=== PATIENT | female | born 1980 | race Caucasian/White ===

== ENCOUNTER 2017-06-23 04:15 | Emergency (ER) | payer BC ==
[2017-06-23] MEDS ORDERED: Metoclopramide HCl 10 MG/2 ML VIAL ONE (04:51)
[2017-06-23] MEDS ORDERED: Dexamethasone 10 MG/ML VIAL ONE (04:51)
[2017-06-23] MEDS ORDERED: diphenhydrAMINE 50 MG/ML VIAL ONE (04:51)
== END 2017-06-23 06:51 | disposition home or self-care (01) ==
LOC: ERS 04:15
DX: R51 Headache (principal); F17.210 Nicotine dependence, cigarettes, uncomplicated; Z79.899 Other long term (current) drug therapy
CPT/HCPCS: 81025; 96365; 96375; 99406; J1100; J1200; J2765

== ENCOUNTER 2018-10-24 10:42 | Emergency (ER) | payer BC ==
[2018-10-24] MEDS ORDERED: Aspirin Chewable 81 MG TAB ONE (10:56)
[2018-10-24] MEDS ORDERED: Mag-Al Plus 1200 MG/1200 MG/120 MG/30 ML UDCUP ONE (10:56)
[2018-10-24] MEDS ORDERED: Lidocaine Viscous Sol 2% 15 ml UD Cup ONE (10:56)
[2018-10-24] MEDS ORDERED: Nitroglycerin 2% Ointment 1 INCH/1 GM Packet ONE (11:09)
[2018-10-24] MEDS ORDERED: Famotidine/PF 20 mg/2ml Vial ONE (11:09)
[2018-10-24 11:17] LABS: #Eosinphils 0.2 thou/uL (0.0-0.7); #Lymphocytes 1.8 thou/uL (1.20-3.40); #Monocytes 0.5 thou/uL (0.11-0.59); #Neutrophils 3.2 thou/uL (1.40-6.50); %Basophils 0.6 % (0.0-1.0); %Eosinophils 3.3 % (0.0-10.0); %Lymphocytes 31.1 % (21.0-51.0); %Monocytes 8.1 % (0.0-10.0); %Neutrophils 56.9 % (42.0-75.0); Hemoglobin 13.4 g/dL (12.0-16.0); Mean Corpuscular HGB CONC 31.8 g/dL (32.0-36.0); Mean Corpuscular Hemoglobin 28.4 pg (27.0-31.0); Mean Corpuscular Volume 89.3 fL (78.0-98.0); Mean Platelet Volume 7.5 fL (7.4-10.4); Platelet Count 189 thou/uL (130-400); RBC Distribution Width 11.8 % (11.5-14.5); Red Blood Cell (RBC) Count 4.72 mill/uL (4.20-5.40); White Blood Cell (WBC) Count 5.6 thou/uL (4.8-10.8)
[2018-10-24 11:26] LABS: ALT (SGPT) 22 U/L (8-55); AST (SGOT) 14 U/L (5-34); Albumin 4.1 g/dL (3.5-5.0); Alkaline Phosphatase 72 U/L (40-150); Anion Gap 11 mmol/L (10-20); BUN (Urea Nitrogen) 10 mg/dL (7.0-18.7); Bilirubin, Total 0.2 mg/dL (0.2-1.2); Calc. Creatinine Clearance 0 mL/min (70-130); Calcium 9.4 mg/dL (7.8-10.44); Carbon Dioxide 25 mmol/L (22-29); Chloride 107 mmol/L (98-107); Estimated GFR-MDRD Greater than 90; Globulin 2.4 g/dL (2.4-3.5); Glucose 100 mg/dL (70-105); Lipase 16 U/L (8-78); Protein, Total 6.5 g/dL (6.0-8.3); Sodium 139 mmol/L (136-145)
--- NOTE | 2018-10-24 12:02 | RAD ---
1 VIEW CHEST: Date: 10/24/18 COMPARISON: 05/14/16. HISTORY: Chest pain. FINDINGS: Normal cardiac silhouette. Pulmonary vessels and hilum are normal. Costophrenic angles are clear. No masses or consolidation. No pneumothorax or osseous abnormalities. IMPRESSION: No acute cardiopulmonary process. POS: [facility]
[2018-10-24 14:54] LABS: Troponin I 0.012 ng/mL (< 0.028)
== END 2018-10-24 15:27 | disposition home or self-care (01) ==
LOC: SCSER 10:42
DX: R07.9 Chest pain, unspecified (principal); Z71.6 Tobacco abuse counseling; K21.9 Gastro-esophageal reflux disease without esophagitis; G43.909 Migraine, unspecified, not intractable, without status migrainosus; F17.210 Nicotine dependence, cigarettes, uncomplicated
CPT/HCPCS: 71045; 80053; 83690; 84484; 85025; 93005; 96361; 96374; S0028

== ENCOUNTER 2019-01-02 03:57 | Emergency (ER) | payer BC ==
[2019-01-02] MEDS ORDERED: Morphine 4 MG/ML VIAL ONE (04:25)
[2019-01-02] MEDS ORDERED: Ondansetron PF 4 MG/2 ML Vial ONE (04:25)
[2019-01-02 04:37] LABS: #Eosinphils 0.2 thou/uL (0.0-0.7); #Monocytes 0.5 thou/uL (0.11-0.59); #Neutrophils 3.5 thou/uL (1.40-6.50); %Basophils 0.5 % (0.0-1.0); %Eosinophils 3.5 % (0.0-10.0); %Monocytes 7.3 % (0.0-10.0); %Neutrophils 56.8 % (42.0-75.0); Hemoglobin 13.5 g/dL (12.0-16.0); Mean Corpuscular HGB CONC 33.1 g/dL (32.0-36.0); Mean Corpuscular Hemoglobin 30.2 pg (27.0-31.0); Mean Corpuscular Volume 91.1 fL (78.0-98.0); Mean Platelet Volume 6.9 fL (7.4-10.4); Platelet Count 222 thou/uL (130-400); RBC Distribution Width 11.6 % (11.5-14.5); Red Blood Cell (RBC) Count 4.48 mill/uL (4.20-5.40); White Blood Cell (WBC) Count 6.2 thou/uL (4.8-10.8)
[2019-01-02 04:39] LABS: BHCG - Serum Negative (NEGATIVE); Pregs Control Background? CLEAR/WHITE (CLR/WHITE); Pregs Control Bar Appear? YES (CONTROL BAR)
[2019-01-02 04:54] LABS: ALT (SGPT) 26 U/L (8-55); AST (SGOT) 20 U/L (5-34); Albumin 4.3 g/dL (3.5-5.0); Alkaline Phosphatase 70 U/L (40-150); Anion Gap 10 mmol/L (10-20); BUN (Urea Nitrogen) 13 mg/dL (7.0-18.7); Bilirubin, Total 0.6 mg/dL (0.2-1.2); Calc. Creatinine Clearance 0 mL/min (70-130); Calcium 9.3 mg/dL (7.8-10.44); Carbon Dioxide 24 mmol/L (22-29); Chloride 107 mmol/L (98-107); Estimated GFR-MDRD 76; Globulin 2.4 g/dL (2.4-3.5); Glucose 115 mg/dL (70-105); Potassium 3.3 mmol/L (3.5-5.1); Protein, Total 6.7 g/dL (6.0-8.3); Sodium 138 mmol/L (136-145)
[2019-01-02 04:55] LABS: Bilirubin Negative (Negative); Blood, Urine Large (Negative); Clarity CLOUDY (Clear); Glucose, Urine (Dipstick) Negative (Negative); Leukocyte Negative (Negative); Nitrite Negative (Negative); Protein, Urine (Dipstick) 30 mg/dL (Neg-Trace); Specific Gravity, Urine 1.031 (1.002-1.036); pH, Urine 5.5 (5.0-9.0)
[2019-01-02 05:13] LABS: RBC/HPF 21-50 HPF (0-3); Squamous Epithelial 0-3 HPF (0-3); WBC/HPF 0-3 HPF (0-3)
[2019-01-02 05:14] LABS: Bacteria/HPF None Seen HPF (None Seen); Hyaline Casts/LPF 0-3 HYALINE CAST LPF (0-3 Hyaline)
[2019-01-02] MEDS ORDERED: Ketorolac Tromethamine 30 MG/ML VIAL ONE (05:51)
--- NOTE | 2019-01-02 07:18 | CT ---
CT OF ABDOMEN AND PELVIS NONCONTRAST: COMPARISON: 02/26/2014. INDICATION: Right flank pain new onset. FINDINGS: There are numerous left renal calculi. Punctate, faint right renal calculi are also seen. There is mild right hydroureteral nephrosis as a result of distal right ureteral calculus, measuring 3 mm. No left-side obstructive uropathy. There is a stable calcific density at the periphery of the superio r right hepatic lobe. This is incompletely assessed on the basis of this noncontrast exam. Noninfla med small fat-containing periumbilical hernia is present. IMPRESSION: 1. Interval migration of a prior right renal calculus, now residing at the distal right ureter, 3 mm in size, with mild associated obstructive uropathy. 2. Numerous additional bilateral renal calculi, left greater than right. POS: [facility]
== END 2019-01-02 05:57 | disposition home or self-care (01) ==
LOC: ERS 03:57
DX: N13.2 Hydronephrosis with renal and ureteral calculous obstruction (principal); K21.9 Gastro-esophageal reflux disease without esophagitis; G43.909 Migraine, unspecified, not intractable, without status migrainosus; F90.9 Attention-deficit hyperactivity disorder, unspecified type; F17.210 Nicotine dependence, cigarettes, uncomplicated; Z79.899 Other long term (current) drug therapy
CPT/HCPCS: 36415; 74176; 80053; 81003; 81015; 84703; 85025; 96361; 96374; 96375; J1885; J2270; J2405

== ENCOUNTER 2019-01-04 02:26 | Observation (INO) | payer BC ==
[2019-01-04] MEDS ORDERED: Ondansetron PF 4 MG/2 ML Vial ONE ×2 (02:46→13:36)
[2019-01-04 03:01] LABS: Hemoglobin 13.4 g/dL (12.0-16.0); Lymphocytes 29 % (21-51); MDiff Complete? YES; Mean Corpuscular Volume 88.2 fL (78.0-98.0); Mean Platelet Volume 7.7 fL (7.4-10.4); Monocytes 7 % (0-10); Neutrophil 61 % (42-75); Platelet Count 213 thou/uL (130-400); RBC Distribution Width 11.8 % (11.5-14.5); Reactive Lymphocytes 3 % (0-10); Red Blood Cell (RBC) Count 4.46 mill/uL (4.20-5.40); White Blood Cell (WBC) Count 8.5 thou/uL (4.8-10.8)
[2019-01-04 03:06] LABS: ALT (SGPT) 23 U/L (8-55); AST (SGOT) 17 U/L (5-34); Albumin 4.3 g/dL (3.5-5.0); Alkaline Phosphatase 66 U/L (40-150); Anion Gap 13 mmol/L (10-20); BUN (Urea Nitrogen) 8 mg/dL (7.0-18.7); Bilirubin, Total 0.3 mg/dL (0.2-1.2); Calc. Creatinine Clearance 0 mL/min (70-130); Calcium 9.5 mg/dL (7.8-10.44); Carbon Dioxide 24 mmol/L (22-29); Chloride 106 mmol/L (98-107); Estimated GFR-MDRD 74; Globulin 2.2 g/dL (2.4-3.5); Glucose 115 mg/dL (70-105); Lipase 14 U/L (8-78); Potassium 3.4 mmol/L (3.5-5.1); Protein, Total 6.5 g/dL (6.0-8.3); Sodium 140 mmol/L (136-145)
[2019-01-04] MEDS ORDERED: Ketorolac Tromethamine 30 MG/ML VIAL ONE (03:23)
[2019-01-04 04:41] LABS: Bilirubin Negative (Negative); Blood, Urine Moderate (Negative); Clarity Slightly Cloudy (Clear); Glucose, Urine (Dipstick) Negative (Negative); Leukocyte Negative (Negative); Nitrite Negative (Negative); Protein, Urine (Dipstick) Negative (Neg-Trace); Urobilinogen 0.2 mg/dL (0.2-1.0)
[2019-01-04 04:45] LABS: Squamous Epithelial 0-3 HPF (0-3); WBC/HPF 0-3 HPF (0-3)
[2019-01-04 04:46] LABS: Bacteria/HPF 1+ HPF (None Seen); Hyaline Casts/LPF NONE SEEN LPF (0-3 Hyaline); Pregnancy Test - Urine (BHCG) Negative (Negative); Pregu Control Background? CLEAR/WHITE (CLR/WHITE); Pregu Control Bar Appear? YES (CONTROL BAR)
[2019-01-04 05:44] VITALS: BMI 32.3
[2019-01-04] MEDS: Sodium Chloride 0.9% 1,000 ML IV SCH ×2 (06:05→12:55)
[2019-01-04] MEDS ORDERED: Morphine 4 MG/ML VIAL SLOW IVP PRN (06:35)
[2019-01-04] MEDS ORDERED: Ondansetron ODT 4 MG TAB SL PRN (06:36)
[2019-01-04] MEDS ORDERED: Ondansetron PF 4 MG/2 ML Vial IVP PRN (06:36)
--- NOTE | 2019-01-04 06:59 | CT ---
CT ABDOMEN AND PELVIS WITHOUT IV CONTRAST: Date: 01/04/19 INDICATION: 38-year-old female with worsening abdominal pain. COMPARISON: Prior CT of the abdomen and pelvis dated 01/02/19. FINDINGS: There is worsening mild to moderate right hydronephrosis and hydroureter. There is a stable 2.[address] one, now at the level of the right UVJ. Left nephrolithiasis is stable. The calcification involving the right hepatic dome is stable. Pancreas, adrenal glands, and spleen ap pear within normal limits. No free fluid is evident. There is a normal appendix in the right lower qu adrant. There are bilateral tubal ligation clips. Osseous structures appear unchanged. IMPRESSION: 1. Migration of the previously seen distal right ureteral calculus now to the level of the right UVJ but with worsening mild to moderate right-sided hydronephrosis. 2. Stable left-sided nephrolithiasis. POS: [facility]
--- NOTE | 2019-01-04 10:39 | CON ---
DATE OF CONSULTATION: 01/04/2019 REASON FOR ADMISSION/CONSULT: Right hydronephrosis, right UVJ stone. HISTORY OF PRESENT ILLNESS: Ms. Elizalde is a 38-year-old female, whom I had seen back in 2008, in which she underwent left ureteral stone treatment, stent placement. I had not seen her since then. The patient presented to the emergency room on January 02, found to have a 3 mm right distal ureteral calculi. She has left nonobstructing renal calculi. Due to persistent stone discomfort, she presented to the emergency room. Repeat CT was obtained by the emergency room demonstrating the stone at the right UVJ. Her labs are stable. Vital signs stable. However, due to repeat presentation to the ER, she was admitted for stone treatment. She denies history of nausea, vomiting, fever, chills, or gross hematuria. She states the pain was persistent, therefore she presented to the emergency room. Currently, her pain is adequately controlled with IV pain medication. PAST MEDICAL HISTORY: Includes ADHD, history of panic attack and anxiety, history of kidney stones. PAST SURGICAL HISTORY: Left ureteral stent, ureteroscopy versus ESWL in 2008. REVIEW OF SYSTEMS: Ten-point review of systems as above, otherwise noncontributory. SOCIAL HISTORY: Include occasional cigarettes. Denies recreational drug use. ALLERGIES: NO KNOWN DRUG ALLERGIES. HOME MEDICATIONS: Include: 1. Amphetamine. 2. Dextromethorphan. 3. Prior history of clonazepam p.r.n. for panic attacks. PHYSICAL EXAMINATION: VITAL SIGNS: Her vital signs are stable. She is afebrile, 98, 91, 16, 95, 110/ 74. GENERAL: The patient is in no acute distress. HEENT: Unremarkable. HEART: Regular rate. LUNGS: Clear. ABDOMEN: Soft. No rigidity. No rebound. Subjective area of discomfort in the right lower quadrant. : Unremarkable with no significant prolapse or mass of concern. EXTREMITIES: No cyanosis, clubbing, or edema. NEUROLOGIC: No gross focal deficits. PSYCHIATRIC: Appears to be appropriate and intact. PERTINENT LABORATORY DATA: White count 8, hemoglobin 13, and platelet 213. Creatinine 0.8. UA demonstrates 1+ bacteria, 11 to 20rbc , negative leukocytes, negative nitrites. Cultures are pending. CT of the abdomen and pelvis which was performed on January 02 demonstrates a right distal ureteral calculi 3 mm at the S3-4 ureter with hydronephrosis, left nonobstructing renal calculi. Repeat CT scan performed this morning at January 04, 2019 demonstrates distal migration of the stone to the right UVJ with [id number] hydronephrosis. Left kidney demonstrates no evidence of obstruction. Per my review, there is a left mid pole 3 mm calcification, left mid to lower pole 6 mm calcific density which may be papilla based. IMPRESSION AND PLAN: Ms. Elizalde is a 38-year-old female with history of kidney stone, prior history of left ureteral stent, stone treatment, presents today due to persistent discomfort with multiple ER presentation demonstrating right 3 mm UVJ stone. She is clinically stable, however, due to multiple ER visits, she is advised regarding cysto and stent placement start antibiotic. will proceed with ureteral stent, anticipate the patient can be discharged after ureteral stent placement. Job ID: [id number] MTDD
[2019-01-04] MEDS ORDERED: Dexamethasone 20 MG/5 ML VIAL ONE (13:36)
[2019-01-04] MEDS ORDERED: Rocuronium Bromide 10 MG/ML (10ML VIAL) ONE (13:36)
[2019-01-04] MEDS ORDERED: PROPOFOL 200 MG/20 ML VIAL ONE (13:36)
[2019-01-04] MEDS ORDERED: Glycopyrrolate 0.2 MG/ML 5 ML SYRINGE ONE (13:36)
[2019-01-04] MEDS ORDERED: Lidocaine 1% PF 5 ML VIAL ONE (13:36)
[2019-01-04] MEDS ORDERED: Iothalamate Meglumine 60% 50 ML VIAL FS ONE (14:02)
[2019-01-04] MEDS ORDERED: Fentanyl 100 MCG/2 ML VIAL ONE ×2 (14:09→15:16)
[2019-01-04] MEDS ORDERED: cefTRIAXone\\ROCEPHIN 1 GM VIAL ONE (14:47)
[2019-01-04] MEDS ORDERED: Acetaminophen 500 MG TAB PO PRN (14:58)
[2019-01-04] MEDS ORDERED: hydrALAZINE 20 MG/ML VIAL SLOW IVP PRN ×2 (14:58→16:00)
[2019-01-04] MEDS ORDERED: diphenhydrAMINE 50 MG/ML VIAL IVP PRN (14:58)
[2019-01-04] MEDS ORDERED: Sodium Chloride 0.9% 1,000 ML IV SCH (15:00)
[2019-01-04] MEDS ORDERED: HYDROmorphone 2 MG/ML VIAL SLOW IVP PRN (15:15)
[2019-01-04] MEDS ORDERED: Promethazine HCl 25 MG/ML VIAL IM PRN (15:15)
[2019-01-04] MEDS ORDERED: Promethazine HCl 25 MG/ML VIAL SLOW IVP PRN (15:15)
[2019-01-04] MEDS ORDERED: Meperidine HCl/PF 25 MG/ML VIAL SLOW IVP PRN (15:15)
[2019-01-04] MEDS ORDERED: Docusate 100 MG CAP PO PRN (16:00)
[2019-01-04] MEDS ORDERED: HYDROcodone/Acetaminophen 5/325 mg Tablet PO PRN ×2 (16:00)
[2019-01-04] MEDS ORDERED: Oxybutynin 5 MG TAB PO PRN (16:00)
[2019-01-04] MEDS ORDERED: Phenazopyridine HCl 97.5 MG TABLET PO PRN (16:00)
[2019-01-04] MEDS ORDERED: Mag-Al 1200 mg/1200 mg/30 ML UDCUP PO PRN (16:00)
[2019-01-04 20:34] VITALS: BP 108/71; TEMP 98.3
--- NOTE | 2019-01-04 22:35 | OP ---
DATE OF PROCEDURE: 01/04/2019 PREOPERATIVE DIAGNOSES: 1. A 38-year-old female with history of right 3 mm ureterovesical junction stone , recurrent to ER presentation. 2. Left nonobstructing renal lithiasis, 3 mm midpole, 2nd mid to lower pole 6 mm stone, possibly papilla based. POSTOPERATIVE DIAGNOSES: 1. A 38-year-old female with history of right 3 mm ureterovesical junction stone , recurrent to ER presentation. 2. Left nonobstructing renal lithiasis, 3 mm midpole, 2nd mid to lower pole 6 mm stone, possibly papilla based. PROCEDURES PERFORMED: Cystoscopy, right balloon dilation of the ureteral orifice, ureteroscopy, laser lithotripsy, basket extraction of right UVJ stone, a 6 x 26 double-J ureteral stent on [facility]. ANESTHESIA: General. COMPLICATIONS: None apparent. DISPOSITION: Recovery room in stable condition. INDICATIONS FOR PROCEDURE AND HISTORY: Ms. Elizalde is a 38-year-old female who presented to the emergency room on january 02 and again January 04 due to right flank pain. She had a CT scan demonstrating 3 mm distal UVJ stone. From prior CT scan, stone did migrate from S3-4 ureter to the right UVJ. Due to persistent discomfort non-progression, she desired to proceed with treatment and is admitted. Risks and complications including, but not limited to, bleeding, pain, infection, injury to adjacent organs, urosepsis stricture formation was reviewed. Secondary procedure possibly was reviewed. DESCRIPTION OF PROCEDURE: After an informed consent was signed the patient taken to the operating room, placed in a dorsal lithotomy position with the genital area prepped and draped in the usual surgical sterile fashion. She has been provided broad-spectrum antibiotic therapy. Bilateral FIDE hose SCDs are in place. A 21-Macedonian cystoscope was utilized for cystoscopy. There was no bladder stone. UOs were identified in normal anatomical location. A 5-Macedonian open-ended catheter was placed just into the right UO and we felt the resistance of a UVJ stone just proximal to the ureteral orifice. A 0.35 Sensor wire was negotiated into the right upper pole. The stone is right at the UVJ /intramural ureter, we gently dilated the UO itself and subsequently a rigid ureteroscope was passed in which I was able to see the stone. Using 200 micron laser fiber, we utilized laser lithotripsy to break up the stone. Minimal fluid irrigation was utilized, to prevent pyelovenous backflow. With endoscopic clearance with laser lithotripsy, the stone did fall out into the bladder as it was located in the UVJ. I did pass the ureteral scope gently, which demonstrated no further stone nidus of concern. A 6 x 26 double-J ureteral stent was passed without difficulty, left on Dangler, taped to patient's pubis. She tolerated the procedure well. She will be transferred back to her bed. I will observe her and if there is no significant fever of concern, we will discharge patient this afternoon. We will continue broad-spectrum antibiotic therapy until culture finalized. Job ID: [id number] MTDD
--- NOTE | 2019-01-05 04:31 | DIS ---
DATE OF ADMISSION: 01/04/2019 DATE OF DISCHARGE: 01/04/2019 ADMITTING DIAGNOSIS: Right flank pain due to ureterovesical junction stone. PROCEDURES PERFORMED: Cysto, right ureteroscopy, laser lithotripsy, stent placement on Dangler with resolution of stone. Brief hospital course. Patient presented with multiple ER visits due to right ureteral stone. As such she was admitted, underwent stone treatment uneventfully. Pain improved, doing well postop tolerating regular diet. CONDITION: Stable. DISPOSITION: Home. DISCHARGE MEDICATIONS: Include, 1. Ciprofloxacin 500 mg one p.o. b.i.d. for 10 days. 2. Oxybutynin 10 mg one p.o. XL daily. 3. Azo [id number]. 4. [place] 5/325 #30. FOLLOWUP VISITS: will follow up on next Wednesday for stent pull on Dangler. She is to stay on antibiotics until her final urine culture can be reviewed. Job ID: [id number] MTDD
[2019-01-05] MEDS ORDERED: AMPHETAMINE PO SCH (09:00)
[2019-01-05] MEDS ORDERED: DEXTROAMPHETAMINE PO SCH (09:00)
[2019-01-05] MEDS ORDERED: [UNRECOGNIZED DRUG - OTHER] PO SCH (09:00)
--- NOTE | 2019-01-09 16:00 | RAD ---
Single view IVP retrograde evaluation INDICATION: Stone manipulation COMPARISON: CT abdomen and pelvis dated 01/04/2019 FINDINGS: The submitted image demonstrates placement of a right double-J ureteral stent. Patient's pr eviously seen right UVJ stone is not definitely appreciated on the current study. The bowel gas pattern is unobstructed. There are small phleboliths within the lower pelvis. IMPRESSION: Interval placement of a right double-J ureteral stent.
== END 2019-01-04 20:20 | disposition home or self-care (01) ==
LOC: SCSER 02:26 → SURG B 05:00
PROVIDERS: ADMIT Urology; ATTEND Urology
PROC: 0TF38ZZ Fragmentation in Right Kidney Pelvis, Via Natural or Artificial Opening Endoscopic (ICD-10-PCS; principal; 2019-01-04)
PROC: 0T768DZ Dilation of Right Ureter with Intraluminal Device, Via Natural or Artificial Opening Endoscopic (ICD-10-PCS; 2019-01-04)
DX: N13.2 Hydronephrosis with renal and ureteral calculous obstruction (principal); F90.9 Attention-deficit hyperactivity disorder, unspecified type; F41.9 Anxiety disorder, unspecified; F17.210 Nicotine dependence, cigarettes, uncomplicated; Z79.899 Other long term (current) drug therapy; Z98.890 Other specified postprocedural states
CPT/HCPCS: 74176; 74420; 80053; 81003; 81015; 81025; 83690; 85025; 87086; 96361; 96374; 96375; C1769; G0378; J0696; J1100; J1170; J1885; J1956; J2001; J2405; J2704; J3010; Q9961

== ENCOUNTER 2019-03-20 08:07 | Emergency (ER) | payer BC ==
[2019-03-20] MEDS ORDERED: Lorazepam 2 MG/ML VIAL ONE (08:29)
--- NOTE | 2019-03-25 14:42 | EKG ---
Test Reason : Blood Pressure : / mmHG Vent. Rate : 090 BPM Atrial Rate : 090 BPM P-R Int : 112 ms QRS Dur : 090 ms QT Int : 396 ms P-R-T Axes : 077 062 007 degrees QTc Int : 484 ms Normal sinus rhythm Normal ECG Confirmed by VALENTIN WOO, LOLI James ([id number]), advertising editor MENDOZA RAMOS ([id number]) on 03/25/2019 2:42:17 PM Referred By: Confirmed By:LOLI HANSON MD
== END 2019-03-20 09:50 | disposition home or self-care (01) ==
LOC: SCSER 08:07
DX: R07.9 Chest pain, unspecified (principal); F41.9 Anxiety disorder, unspecified; K21.9 Gastro-esophageal reflux disease without esophagitis; G43.909 Migraine, unspecified, not intractable, without status migrainosus; F90.9 Attention-deficit hyperactivity disorder, unspecified type; F17.210 Nicotine dependence, cigarettes, uncomplicated; Z79.899 Other long term (current) drug therapy
CPT/HCPCS: 93005; 96372; J2060

== ENCOUNTER 2019-04-24 22:46 | Emergency (ER) | payer BC | END 2019-04-24 22:50 | disposition left against medical advice (07) | LOC: ERS 22:46 | DX: Z53.21 Procedure and treatment not carried out due to patient leaving prior to being seen by health care provider (principal) ==

== ENCOUNTER 2019-04-25 02:31 | Emergency (ER) | payer BC ==
[2019-04-25 02:50] LABS: Bilirubin Negative (Negative); Blood, Urine Large (Negative); Clarity Cloudy (Clear); Glucose, Urine (Dipstick) Negative (Negative); Leukocyte Moderate (Negative); Nitrite Positive (Negative); Protein, Urine (Dipstick) 100 mg/dL (Neg-Trace); Urobilinogen 0.2 mg/dL (Less than 2)
[2019-04-25 02:56] LABS: Pregnancy Test - Urine (BHCG) Negative (Negative); Pregu Control Background? CLEAR/WHITE (CLR/WHITE); Pregu Control Bar Appear? YES (CONTROL BAR)
[2019-04-25] MEDS ORDERED: Ketorolac Tromethamine 30 MG/ML VIAL ONE (02:57)
[2019-04-25] MEDS ORDERED: Ondansetron PF 4 MG/2 ML Vial ONE (02:57)
[2019-04-25 03:03] LABS: WBC/HPF Greater than 50 HPF (0-3)
[2019-04-25 03:03] LABS: #Basophils 0.1 thou/uL (0.0-0.2); #Eosinphils 0.2 thou/uL (0.0-0.7); #Lymphocytes 1.7 thou/uL (1.20-3.40); #Monocytes 0.7 thou/uL (0.11-0.59); #Neutrophils 8.3 thou/uL (1.40-6.50); %Basophils 0.5 % (0.0-1.0); %Eosinophils 2.1 % (0.0-10.0); %Lymphocytes 15.8 % (21.0-51.0); %Monocytes 6.7 % (0.0-10.0); %Neutrophils 74.9 % (42.0-75.0); Hemoglobin 13.6 g/dL (12.0-16.0); Mean Corpuscular HGB CONC 33.8 g/dL (32.0-36.0); Mean Corpuscular Hemoglobin 29.6 pg (27.0-31.0); Mean Corpuscular Volume 87.6 fL (78.0-98.0); Mean Platelet Volume 7.1 fL (7.4-10.4); Platelet Count 239 thou/uL (130-400); RBC Distribution Width 12.1 % (11.5-14.5); Red Blood Cell (RBC) Count 4.58 mill/uL (4.20-5.40)
[2019-04-25 03:04] LABS: Bacteria/HPF 3+ HPF (None Seen); RBC/HPF Greater than 50 HPF (0-3)
[2019-04-25 03:16] LABS: ALT (SGPT) 23 U/L (8-55); AST (SGOT) 15 U/L (5-34); Albumin 4.1 g/dL (3.5-5.0); Alkaline Phosphatase 72 U/L (40-150); Anion Gap 15 mmol/L (10-20); BUN (Urea Nitrogen) 11 mg/dL (7.0-18.7); Bilirubin, Total 0.4 mg/dL (0.2-1.2); Calc. Creatinine Clearance 0 mL/min (70-130); Calcium 9.7 mg/dL (7.8-10.44); Carbon Dioxide 25 mmol/L (22-29); Chloride 104 mmol/L (98-107); Estimated GFR-MDRD 86; Globulin 2.6 g/dL (2.4-3.5); Glucose 122 mg/dL (70-105); Lipase 28 U/L (8-78); Protein, Total 6.7 g/dL (6.0-8.3); Sodium 140 mmol/L (136-145)
[2019-04-25] MEDS ORDERED: cefTRIAXone\\ROCEPHIN 1 GM VIAL ONE (04:27)
[2019-04-25] MEDS ORDERED: Sodium Chloride 0.9% 100 ML ONE (04:27)
--- NOTE | 2019-04-25 07:37 | CT ---
PRELIMINARY REPORT/[facility]/EMERGENCY AFTER HOURS PROCEDURE EXAM: CT Abdomen and Pelvis Without Contrast EXAM DATE/TIME: 04/25/2019 3:10 AM CLINICAL HISTORY: 38 years old, female; Abdominal pain; Patient HX: Patient presents with L flank pain similar to prior kidney stones. Went to main campus but was too busy. Pain subsided but returned tonight. Patient denies other complaints at this time TECHNIQUE: Imaging protocol: Computed tomography of the abdomen and pelvis without contrast. COMPARISON: No relevant prior studies available. FINDINGS: Liver: No acute findings. No mass. Small hepatic calcification. Gallbladder and bile ducts: No calcified stones. No ductal dilation. Pancreas: No acute findings. No ductal dilation. Spleen: No acute findings. No splenomegaly. Adrenals: No acute findings. No mass. Kidneys and ureters: Left distal ureteral 5 mm obstructing calculus with hydroureteronephrosis and periureteral stranding. Other bilateral small 1-2 mm renal nonobstructing calculi. No right hydronephrosis. Stomach and bowel: No obstruction. Appendix: No evidence of appendicitis. Intraperitoneal space: No free air. No significant fluid collection. Vasculature: No abdominal aortic aneurysm. Lymph nodes: No significant adenopathy. Bladder: The bladder is decompressed. No stones. Reproductive: No acute findings. Bones/joints: No acute fracture. Soft tissues: No acute findings. IMPRESSION: Left distal ureteral obstructing calculus. Bilateral renal small nonobstructing calculi. Thank you for allowing us to participate in the care of your patient. Dictated and Authenticated by: Pradeep Tafoya MD 04/25/2019 4:14 AM Central Time ([place] & [place]) FINAL REPORT CT ABDOMEN AND PELVIS NONCONTRAST PERFORMED ON AN EMERGENCY BASIS: Date: 04/25/19 Time: 0312 hours HISTORY: Left flank pain. COMPARISON: 01/02/2019. IMPRESSION: Findings agree with the preliminary report by Dr. Tafoya from [facility]. Partial obstruction at a 5 mm dist al left ureteral calculus. Additional nonobstructing bilateral renal calculi. Lack of contrast limits evaluation for other abnormalities. Code QA. Transcribed Date/Time: 04/25/2019 8:00 AM
== END 2019-04-25 05:19 | disposition home or self-care (01) ==
LOC: SCSER 02:31
DX: N13.2 Hydronephrosis with renal and ureteral calculous obstruction (principal); R82.71 Bacteriuria; F17.210 Nicotine dependence, cigarettes, uncomplicated; Z79.899 Other long term (current) drug therapy
CPT/HCPCS: 74176; 80053; 81003; 81015; 81025; 83690; 85025; 87086; J0696; J1885; J2405; J3490

== ENCOUNTER 2019-04-25 09:32 | Day surgery (SDC) | payer BC ==
[2019-04-25] MEDS ORDERED: Fentanyl 100 MCG/2 ML VIAL ONE ×2 (10:15→11:55)
[2019-04-25] MEDS ORDERED: Levofloxacin 500 mg/D5W 100 ml Premix Bag ONE (10:35)
[2019-04-25 10:56] LABS: PTT 34.3 SEC (22.9-36.1)
[2019-04-25] MEDS ORDERED: Iothalamate Meglumine 60% 50 ML VIAL FS ONE (11:19)
--- NOTE | 2019-04-25 11:56 | RAD ---
EXAM: XR IVP Retrograde PROVIDED CLINICAL HISTORY: Left ureteral calculus. COMPARISON: CT abdomen on 04/25/2019 FINDINGS: 3 intraoperative fluoroscopic images from a retrograde left urogram are submitted for interpretation. Initial image demonstrates a catheter within the distal left ureter with opacification of the distal left ureter. There is a filling defect seen at the tip of the catheter which may represent the left ureteral calculus which has migrated inferiorly. The ureter proximal to this region is dilated. Final images demonstrate placement of a left ureteral stent with proximal portion overlying the left renal pelvis and distal portion overlying the urinary bladder. Correlation with intraoperative findings is recommended. Fluoroscopy: Time-1.18 minutes. Total dose 15.1 mGy
--- NOTE | 2019-04-25 12:03 | RAD ---
SUPINE ABDOMEN: Date: 04/25/19 INDICATION: Preop. Left ureteral calculus. Comparison made to yesterday's CT. FINDINGS: The calculus seen in the lower left ureter on yesterday's exam now appears to reside within the upper pelvis, which would indicate movement in to the distal left ureter. Bowel gas pattern unremarkable. No other urinary tract calcification apparent. IMPRESSION: Left ureteral calculus seen in the left mid pelvis. POS: OFF
--- NOTE | 2019-04-25 12:05 | RAD ---
2 VIEW CHEST: Date: 04/25/19 COMPARISON: 09/27/10. HISTORY: Preop. FINDINGS: Lungs appear clear. No infiltrate or vascular congestion. Heart and mediastinum unremarkable. Osseous structures unremarkable. IMPRESSION: No acute abnormality. POS: OFF
--- NOTE | 2019-04-25 12:10 | OP ---
DATE OF PROCEDURE: 04/25/2019 PREOPERATIVE DIAGNOSIS: A 38-year-old female with history of recurrent kidney stone, presented for left flank pain. CT demonstrating a 5 x 8 mm left S2 ureteral calculi, left mid pole 3 mm calculi, right punctate renal lithiasis x2. POSTOPERATIVE DIAGNOSIS: A 38-year-old female with history of recurrent kidney stone, presented for left flank pain. CT demonstrating a 5 x 8 mm left S2 ureteral calculi, left mid pole 3 mm calculi, right punctate renal lithiasis x2. PROCEDURE PERFORMED: Cystoscopy, left retrograde pyelogram, 6 x 26 double-J ureteral stent placement. ANESTHESIA: General. COMPLICATIONS: None apparent. DISPOSITION: To recovery room in stable condition. INDICATIONS FOR PROCEDURE AND HISTORY: Ms. Elizalde is a 38-year-old female with history of recurrent kidney stone, presented to the emergency room early this morning around 2 due to left flank pain. CT demonstrating partially obstructing left distal ureteral calculi with UA demonstrating bacteria. It is contaminated. However, we provided antibiotics Rocephin in the ER, Levaquin preop and she presents for cysto, stent placement. She has been thoroughly informed that ureteroscopy laser lithotripsy will be performed when urine culture final negative. Risks, complications, and indications including observation reviewed, and she desired to proceed with ureteral stent. DESCRIPTION OF PROCEDURE: After an informed consent was signed, the patient was taken to the operating room, placed in a dorsal lithotomy position with the genital area prepped and draped in the usual surgical sterile fashion. A 21-[place] Islander cystoscope was utilized for cystoscopy. Bilateral UOs were identified in normal anatomical location and the 5-[place] open-ended catheter was utilized to intubate the left UO. There was a radiopaque density more distal than seen on CT scan. Therefore, we performed a gentle retrograde pyelogram, which demonstrated a filling defect in the distal ureter, at the level of S3-S4 consistent with a stone. A 0.35 Sensor wire was placed into the left upper pole without difficulty and a 6 x 26 double-J ureteral stent was passed. Proper coil was seen in the renal pelvis. Distal coil with adequate redundancy in the bladder, and she tolerated the procedure well. She is discharged with Colace 100 mg one p.o. b.i.d., ciprofloxacin 500 mg one p.o. b.i.d. for 10 days, oxybutynin 10 mg #30, tramadol 50 mg 1 to 2 p.o. q.6 hours p.r.n., and Azo p.r.n. She will follow up with me this Wednesday to review her final urine culture and to proceed with surgery scheduling for ureteroscopy and laser lithotripsy at a later date. Job ID: [id number] MTDD
[2019-04-25] MEDS ORDERED: Oxybutynin 5 MG TAB ONE (12:17)
[2019-04-25] MEDS ORDERED: Phenazopyridine HCl 97.5 MG TABLET ONE ×2 (12:17)
== END 2019-04-25 14:35 | disposition home or self-care (01) ==
LOC: SDC 09:32
PROVIDERS: ATTEND Urology
PROC: 0T778DZ Dilation of Left Ureter with Intraluminal Device, Via Natural or Artificial Opening Endoscopic (ICD-10-PCS; principal; 2019-04-25)
DX: N20.2 Calculus of kidney with calculus of ureter (principal); F90.9 Attention-deficit hyperactivity disorder, unspecified type; F41.0 Panic disorder [episodic paroxysmal anxiety]; F17.210 Nicotine dependence, cigarettes, uncomplicated; Z79.899 Other long term (current) drug therapy
CPT/HCPCS: 71046; 74018; 74176; 74420; 76000; 80053; 81003; 81015; 81025; 83690; 85025; 85610; 85730; 87077; 87086; C1758; C1769; J0696; J1885; J1956; J2405; J3010; J3490

== ENCOUNTER 2019-04-26 17:29 | Inpatient (IN) | payer BC ==
[~2019-04-26 17:29] MED LIST: Heparin 1,000 UNITS/ML VIAL ONE
[2019-04-26] MEDS ORDERED: Morphine 4 MG/ML VIAL ONE (17:48)
[2019-04-26] MEDS ORDERED: Ondansetron PF 4 MG/2 ML Vial ONE (17:48)
[2019-04-26] MEDS ORDERED: Ketorolac Tromethamine 30 MG/ML VIAL ONE (17:48)
[2019-04-26 18:33] LABS: #Basophils 0.1 thou/uL (0.0-0.2); #Monocytes 0.7 thou/uL (0.11-0.59); #Neutrophils 10.3 thou/uL (1.40-6.50); %Basophils 0.4 % (0.0-1.0); %Eosinophils 0.2 % (0.0-10.0); %Lymphocytes 15.6 % (21.0-51.0); %Neutrophils 78.8 % (42.0-75.0); Hemoglobin 12.5 g/dL (12.0-16.0); Mean Corpuscular HGB CONC 33.3 g/dL (32.0-36.0); Mean Corpuscular Hemoglobin 29.4 pg (27.0-31.0); Mean Corpuscular Volume 88.5 fL (78.0-98.0); Mean Platelet Volume 7.2 fL (7.4-10.4); Platelet Count 229 thou/uL (130-400); RBC Distribution Width 12.5 % (11.5-14.5); Red Blood Cell (RBC) Count 4.26 mill/uL (4.20-5.40)
[2019-04-26 18:45] LABS: ALT (SGPT) 19 U/L (8-55); AST (SGOT) 11 U/L (5-34); Albumin 3.7 g/dL (3.5-5.0); Alkaline Phosphatase 63 U/L (40-150); Anion Gap 15 mmol/L (10-20); BUN (Urea Nitrogen) 10 mg/dL (7.0-18.7); Bilirubin, Total 0.2 mg/dL (0.2-1.2); Calc. Creatinine Clearance 0 mL/min (70-130); Calcium 9.1 mg/dL (7.8-10.44); Carbon Dioxide 23 mmol/L (22-29); Chloride 105 mmol/L (98-107); Estimated GFR-MDRD 86; Globulin 2.4 g/dL (2.4-3.5); Glucose 126 mg/dL (70-105); Potassium 3.5 mmol/L (3.5-5.1); Protein, Total 6.1 g/dL (6.0-8.3); Sodium 139 mmol/L (136-145)
--- NOTE | 2019-04-26 18:55 | RAD ---
EXAM: Single view of the abdomen HISTORY: Assess ureteral stent for migration. Kidney stones. COMPARISON: None FINDINGS: Single view of the abdomen shows a nonspecific, nonobstructive bowel gas pattern. There may be a small calcification projecting over the left renal shadow.There is a left double-J ureteral stent which appears in good position. The bones are unremarkable. IMPRESSION: 1. Appropriate position of ureteral stent 2. Left nephrolithiasis
[2019-04-26] MEDS: Sodium Chloride 0.9% 1,000 ML IV SCH (20:52)
[2019-04-26 21:31] VITALS: BMI 32.9
[2019-04-26] MEDS ORDERED: Acetaminophen 650 MG Suppository PR PRN (22:17)
[2019-04-26] MEDS ORDERED: Bisacodyl 10 MG SUPP PR PRN (22:17)
[2019-04-26] MEDS ORDERED: Ondansetron ODT 4 MG TAB PO PRN (22:17)
[2019-04-26] MEDS ORDERED: Acetaminophen 325 MG TAB PO PRN (22:17)
[2019-04-26] MEDS ORDERED: Ondansetron PF 4 MG/2 ML Vial IVP PRN (22:17)
--- NOTE | 2019-04-26 23:53 | HP ---
PRIMARY CARE PHYSICIAN: Dr. Ashwin Elizabeth. TIME OF ADMISSION: 2200 hours. CHIEF COMPLAINT: Left lower quadrant pain. HISTORY OF PRESENT ILLNESS: Ms. Elizalde is a 38-year-old woman with a known history of nephrolithiasis who reports recurring pain similar to which she has experienced in the past with kidney stones that started on Wednesday. She states the pain is usually in the left lower quadrant. She came to the [facility] Emergency Department and states there was a long wait. Therefore, she went home due to improvement in her pain. Once she got home, her pain became severe again and so she sought medical attention at the [facility] Emergency Department. The patient underwent imaging with a CT of the abdomen and pelvis, which demonstrated a left distal ureteral obstructing calculus with bilateral renal small nonobstructing calculi. The patient apparently has had a ureteral stent placed on the right side in the past. She was prescribed pain medications and oral antibiotics. Her case had been discussed with Dr. Lawson who is on-call for urology, who felt she was appropriate for outpatient management with antibiotics. She had normal vital signs at that time. She had been given Rocephin 1 g IV, Toradol 30 mg IV and ondansetron for nausea. Prescriptions provided were for Keflex, Toradol, Tylenol No. 3 and Zofran. The patient states she began to have severe pain today around 2:00 p.m., Which woke her from her sleep, prompting her to come back into the emergency department. She had been scheduled to undergo lithotripsy by Dr. Sweeney once she completed a few days of antibiotics. She did end up undergoing a cystoscopy with left retrograde pyelogram with placement of a ureteral stent done yesterday. There were no complications associated with this procedure. She had a KUB done that demonstrated appropriate position of the ureteral stent and left nephrolithiasis. The patient has been initiated on IV antibiotics with vancomycin. She continues to have good control of her pain with Toradol. REVIEW OF SYSTEMS: The patient denies having any fevers or chills. Reports having mild nausea, but denies any vomiting. Reports the discomfort in the left lower quadrant has eased and is currently a 3/10 in severity. She does suffer from constipation and takes stool softeners. She feels as if she does need to move her bowels, but has been unable to do so. Last bowel movement was 2 days ago. Denies any blood in the stools. She is unsure of any hematuria, but states due to being on Pyridium, her urine is orange in color; therefore, it has been difficult for her to tell. Denies having any pain radiating down to the groin or up into her back. No chest pain, palpitations, or shortness of breath. No headaches or dizziness. All other review of systems are negative. ALLERGIES: NO KNOWN DRUG ALLERGIES. CURRENT MEDICATIONS: Adderall 30 mg p.o. daily. PAST MEDICAL HISTORY: 1. ADHD. 2. Panic attacks. 3. Anxiety. 4. Nephrolithiasis. PAST SURGICAL HISTORY: 1. Left ureteral stent. 2. Ureteroscopy versus ESWL in 2008. 3. Right ureteral stent. 4. Tubal ligation. SOCIAL HISTORY: The patient lives with her . Is fully independent. Reports smoking half a pack of cigarettes a day. Reports rare alcohol consumption. Denies any illicit drug use. FAMILY HISTORY: Noncontributory. PHYSICAL EXAMINATION: GENERAL: The patient appears well developed, well nourished, is in no acute distress. VITAL SIGNS: Temperature 97.3, pulse 82, respirations 18, O2 saturation 96% on room air, blood pressure 116/74. HEENT: Normocephalic and atraumatic. Pupils are equal, round, and reactive to light. Sclerae icterus. Oropharynx is clear. NECK: Supple. No lymphadenopathy. LUNGS: Clear to auscultation bilaterally without any wheezes, rales, or rhonchi cardiac regular rate and rhythm. ABDOMEN: Soft, not obese, nondistended. Normoactive bowel sounds present. Discomfort in the left lower quadrant with palpation. No guarding or rigidity. No renal angle tenderness. EXTREMITIES: No lower leg swelling or edema. NEUROLOGIC: Alert and oriented x3. SKIN: Without rash or jaundice. LABORATORY DATA: White blood count 13, hemoglobin 12.5, hematocrit 37.7, platelets 229. Sodium 139, potassium 3.5, BUN 10, creatinine 0.75, GFR 86, glucose 126, lactic acid 1.5, calcium 9.1, total bilirubin 0.2, AST 11, ALT 19, alkaline phosphatase 63, albumin 3.7. IMAGING DATA: As mentioned above in HPI. IMPRESSION AND PLAN: Ms. Elizalde is a very pleasant 38-year-old woman who has been admitted for management of nephrolithiasis/pyelonephritis. She did not have any confirmation of pyelonephritis noted on CT done on April 25, 2019; however has had worsening pain with known obstructing left ureteral stone status post stent placement. The patient remains afebrile. We will continue IV antibiotics. For her pain, we will continue Toradol. Her pain seems to be well controlled at this present time. Consultation has been placed to Urology. The patient is not on any medications at home except for Adderall, which we will resume. She is a smoker and has declined nicotine patch. We will continue ondansetron for nausea and famotidine for gastrointestinal prophylaxis. Mechanical sequential compression devices for deep venous thrombosis prophylaxis. We will continue IV fluids as well. Repeat laboratory studies in the a.m. Further management as per Urology recommendations. The patient is full code status. Her surrogate decision maker is her significant other, Mina Stafford. The patient's case was discussed with Dr. Chaney, who agrees with plan of care as described above. Job ID: [id number] MTDD
--- NOTE | 2019-04-27 00:59 | CON ---
DATE OF CONSULTATION: This is a 38-year-old white female, whom I am seeing today in the emergency room here at [facility]. She was in the ER, it looks like she was in the ER on three different days here, the , the , and the with left flank pain. She has long history of stone disease going back 20 years that she was seeing doctor, one of the doctors was Dr. Huston and has been seeing Dr. Dagoberto Holloway most recently. She had a CAT scan done yesterday when she was in the ER that showed mid to lower third ureteral stone with some hydro on the left. Last night, she had a left stent placed. She received some Rocephin at that time. She had urine culture done then. She also had a urine culture done earlier that day, I think when she was initially seen at the [facility]. Both of those cultures today are growing out over 10 to the 5th Staph aureus, so it probably is the real pathogen, still possibly be a contaminant. She went home on I think Cipro, although I think the emergency room doctor said it was maybe Keflex. I am not sure which she went home on, but she has had pain throughout the day, causing her to return to the ER. The pain was fairly significant. Although she was not tachycardic, her blood pressure was up slightly. Her white count also has gone up compared to what it was yesterday, it was 11, today it is 13. Her hemoglobin is stable. Her creatinine is stable. Her urinalysis has not been done today, but yesterday it showed 3+ bacteria. I did a KUB on her and looked that the stent appears to be in good position. She received some pain medication. She is much more comfortable now. Her past surgical history includes ureteroscopies for stone disease and tubal ligation. I do not believe she has had anything apart from that her medical history she has ADD. The only medicine she takes Adderall, but she has not taken for a while. She does smoke. She does not drink any significant amount of alcohol. She does not have any drug allergies. She has some left CVA and left-sided abdominal tenderness. IMPRESSION: Possible pyelonephritis as a cause of her persistent pain. We brought her back to the ER. I think she probably should be admitted. I have talked to the ER doctor after seeing her. He has talked with the hospitalist by getting her admitted and we will give her some vancomycin here as it looks like it is a staph that is probably growing. It may be that it is sensitive to the Cipro or Keflex that she went home on, but it is uncertain, but she is certain it is uncomfortable enough to come back to the ER for the third day in a row. I will notify Dr. Dagoberto Holloway of her admission. Job ID: [id number]
[2019-04-27] MEDS: Ketorolac Tromethamine 30 MG/ML VIAL IVP PRN ×2 (03:01→12:21)
[2019-04-27] MEDS: Sodium Chloride 0.9% 1,000 ML IV SCH ×3 (03:02→14:43)
[2019-04-27 05:31] LABS: #Eosinphils 0.1 thou/uL (0.0-0.7); #Lymphocytes 1.7 thou/uL (1.20-3.40); #Monocytes 0.7 thou/uL (0.11-0.59); #Neutrophils 5.9 thou/uL (1.40-6.50); %Basophils 0.1 % (0.0-1.0); %Eosinophils 1.1 % (0.0-10.0); %Monocytes 8.2 % (0.0-10.0); %Neutrophils 70.6 % (42.0-75.0); Hemoglobin 11.4 g/dL (12.0-16.0); Mean Corpuscular HGB CONC 33.4 g/dL (32.0-36.0); Mean Corpuscular Hemoglobin 30.4 pg (27.0-31.0); Mean Corpuscular Volume 90.8 fL (78.0-98.0); Mean Platelet Volume 7.4 fL (7.4-10.4); Platelet Count 204 thou/uL (130-400); RBC Distribution Width 11.9 % (11.5-14.5); Red Blood Cell (RBC) Count 3.76 mill/uL (4.20-5.40); White Blood Cell (WBC) Count 8.4 thou/uL (4.8-10.8)
[2019-04-27 05:53] LABS: Anion Gap 12 mmol/L (10-20); BUN (Urea Nitrogen) 12 mg/dL (7.0-18.7); Calc. Creatinine Clearance 147 mL/min (70-130); Calcium 8.1 mg/dL (7.8-10.44); Carbon Dioxide 23 mmol/L (22-29); Chloride 108 mmol/L (98-107); Estimated GFR-MDRD 85; Glucose 96 mg/dL (70-105); Potassium 3.9 mmol/L (3.5-5.1); Sodium 139 mmol/L (136-145)
[2019-04-27] MEDS ORDERED: Vancomycin HCl 1.25 GM in Sodium Chloride 0.9% 250 ML 250 ML IVPB SCH (06:00)
--- NOTE | 2019-04-27 08:14 | PRG ---
DATE OF SERVICE: 04/27/2019 HISTORY OF PRESENT ILLNESS: Ms. Elizalde is a 38-year-old female, who was seen in my office April 25 as a work-in as she was presenting to the emergency room due to left flank pain. She was provided Rocephin in the emergency room and has been on ciprofloxacin. She underwent cysto, left 6 x 26 double-J ureteral stent on April 25, and has a routine followup with me tomorrow to proceed with ureteroscopy and laser lithotripsy. However, she presented to the emergency room last night due to persistent left flank pain. Urinalysis demonstrated bacteria, however, it is a contaminated specimen. Blood culture negative. She has been on vancomycin as her previous urine culture from April 25 demonstrated Staph aureus, which is sensitive to ciprofloxacin. Currently, her pain is adequately controlled with pain medication. She denies history of myalgia or fever. A KUB was obtained demonstrating stent in good position. Stone nidus remains as it has been yet to be treated. OBJECTIVE: VITAL SIGNS: Stable and she is clinically better. Vital signs currently and on admission is afebrile, stable, 98, 78, 16, 97, 110/72. GENERAL: The patient appears to be in no acute distress. HEENT: Unremarkable. HEART: Regular rate. LUNGS: Clear. ABDOMEN: Soft. No rigidity. No rebound. Subjective discomfort in the left flank. EXTREMITIES: No cyanosis, clubbing, or edema. PERTINENT LABORATORY: Creatinine of 0.6. White count on admission is 13, currently 8; hemoglobin 11; platelet 204. Urinalysis from April 25 demonstrates positive nitrites; 4-6 epithelials; greater than 50 rbc's, wbc's; 3+ bacteria. Blood culture from April 25 and is negative. IMPRESSION AND PLAN: Ms. Elizalde is a 38-year-old female with history of recurrent kidney stone, status post cysto, left retrograde 6 x 26 stent performed April 25 due to intractable left flank pain. Surgery was uneventful. She was provided Rocephin previously in the emergency room, [facility] and has been on ciprofloxacin. Her previous cultures were reviewed demonstrating Staph, her recent UA is contaminated. May continue vancomycin as she is clinically improving, straight cath, UA, C and S to be obtained today as her previous cultures have been contaminated. Anticipate the patient will be in-house for the next few days until repeat UA, C and S is finalized. I informed the patient that elective ureteroscopy and laser lithotripsy will be deferred until negative urine culture in the next few weeks. Continue IV fluids and pain management. Job ID: [id number] MTDD
[2019-04-27] MEDS ORDERED: Dextroamphetamine/Amphetamine [Adderall Xr 30 Mg Capsule] PO SCH (09:00)
[2019-04-27] MEDS: Famotidine/PF 20 mg/2ml Vial SLOW IVP SCH ×2 (10:13→20:29)
[2019-04-27 12:53] LABS: Bilirubin Small (Negative); Blood, Urine Large (Negative); Glucose, Urine (Dipstick) Negative (Negative); Leukocyte Small (Negative); Protein, Urine (Dipstick) > or equal to 300 mg/dL (Neg-Trace)
[2019-04-27 12:54] LABS: Clarity Turbid (Clear); Nitrite Unable to Interpret (Negative)
--- NOTE | 2019-04-27 12:59 | PDOC.HOSPP ---
- Subjective Encounter Date: 04/27/19 Encounter Time: 11:30 Subjective: pt up in bed no complains - Objective Vital Signs & Weight: Vital Signs (12 hours) Temp Pulse Resp BP Pulse Ox 04/27/19 11:00 98.5 F 89 16 113/71 95 04/27/19 07:41 98.1 F 78 16 110/72 97 04/27/19 04:00 97.9 F 102 H 20 119/77 96 Weight Weight 204 lb Result Diagrams: 04/27/19 05:10 04/27/19 05:10 Hospitalist ROS - Review of Systems Respiratory: denies: cough, dry, shortness of breath, hemoptysis, SOB with excertion, pleuritic pain, sputum, wheezing, other Cardiovascular: denies: chest pain, palpitations, orthopnea, paroxysmal noc. dyspnea, edema, light headedness, other Gastrointestinal: denies: nausea, vomiting, abdominal pain, diarrhea, constipation, melena, hematochezia, other - Medication Medications: Active Medications Generic Name Dose Route Start Last Admin Trade Name Freq PRN Reason Stop Dose Admin Famotidine 20 mg 04/27/19 09:00 04/27/19 10:13 Pepcid SLOW IVP 20 mg Q12HR AHMET Administration Sodium Chloride 1,000 mls @ 100 mls/hr 04/26/19 22:30 04/27/19 03:02 Normal Saline 0.9% IV 1,000 mls .Q10H AHMET Administration Vancomycin HCl 1.25 gm/ Sodium 250 mls @ 166.667 mls/hr 04/27/19 06:00 05:25 Chloride IVPB 250 mls 0600,1800 AHMET Administration Ketorolac Tromethamine 15 mg 04/26/19 22:26 04/27/19 12:21 Toradol IVP 05/01/19 22:27 15 mg Q6H PRN Administration Pain - Exam Neck: negative: supple, symmetric, no JVD, no thyromegaly, no lymphadenopathy, no carotid bruit, JVD Heart: negative: RRR, no murmur, no gallops, no rubs, normal peripheral pulses, irregular, diminshed peripheral pulses, murmur present, II/IV, III/IV Neurological - other findings: right side weakness Hosp A/P (1) UTI (urinary tract infection) Status: Acute (2) Hydronephrosis, right Code(s): N13.30 - UNSPECIFIED HYDRONEPHROSIS Status: Acute - Plan pt's urine indicates mssa will continue vanco and get ID consult since pt has a stent placed in her left ureter.
[2019-04-27 13:08] LABS: RBC/HPF Greater than 50 HPF (0-3)
[2019-04-27 13:09] LABS: Bacteria/HPF Rare-Few HPF (None Seen); Squamous Epithelial 0-3 HPF (0-3)
[2019-04-27] MEDS: cefTRIAXone\\ROCEPHIN 2 GM in Sodium Chloride 0.9% 100 ML IVPB SCH (14:42)
--- NOTE | 2019-04-27 21:21 | CON ---
DATE OF CONSULTATION: 04/27/2019 REASON FOR CONSULTATION: Urinary tract infection with nephrolithiasis, need for antimicrobial therapy prior to lithotripsy . HISTORY OF PRESENT ILLNESS: A 38-year-old with history of recurrent nephrolithiasis, patient of Dr. Sweeney with prior lithotripsy and stent placement in 2008. In December 2018, she presented to the emergency room with a 3 mm right distal ureteral calculus with persistent stone discomfort. A repeat CT showed a UVJ stone without any inflammatory process, i.e., no vomiting, fever or chills. Ureteral stent was planned after cystoscopy and right balloon dilatation of the ureteral orifice with laser lithotripsy and basket extraction of right UVJ stone and a double-J stent placement on 01/04/2019. Now more recently, she presented on April 24 with left flank pain. CT scan showed a mid to lower right third ureteral stone with hydro on the left side. A stent was placed in the left ureter and was given Rocephin. She was discharged on oral Cipro or Keflex, I believe Keflex. She persisted with pain and returned to the emergency room. White cell count was elevated, but she was not tachycardic. KUB showed the stent to be in good position and possibility of pyelonephritis was considered. Her urinalysis was abnormal. Currently, she is feeling better, still with moderate pain in the left side. No headaches, visual symptoms, sore throat, odynophagia, dysphagia. No cough or sputum production. No chest pain. Some abdominal pain. No genitourinary symptoms, specifically no dysuria or hematuria. No joint symptoms. PAST MEDICAL HISTORY: ADHD; panic attacks; anxiety; nephrolithiasis, recurrent, with multiple prior procedures including stents, laser lithotripsy; tubal ligation. ALLERGIES: NONE. MEDICATIONS: Currently receiving Dulcolax, Pepcid, Toradol, Zofran, Adderall, Senokot, vancomycin. 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 PHYSICAL EXAMINATION: VITAL SIGNS: T-max 98.5, BP 113/71, pulse 89, respirations 16, O2 saturation 95. SKIN: Normal. Peripheral IV access and no Dave catheter. LYMPH NODES: There is no lymphadenopathy. HEENT: Normal. NECK: Supple. LUNGS: Symmetric. Clear breath sounds. HEART: S1 and S2, regular rate. No S3 or S4. ABDOMEN: Mild tenderness in the left flank. No distention, no organomegaly. No bladder distention. MUSCULOSKELETAL: No joint inflammatory activity. NEUROLOGIC: Nonfocal. LABORATORY DATA: White cell count 13 and now 8.4, hemoglobin 11.4, platelets 204, 70% neutrophils. Sodium 139, creatinine 0.75 with normal liver profile. Urinalysis 11-20 wbc's. Microbiology with Staph aureus from three samples of urine, this is a methicillin-susceptible strain, greater than 100,000 CFUs. IMAGING: Abdomen and pelvis CT with left distal ureteral obstructing calculus, bilateral renal small nonobstructing calculi. This is a noncontrast study. ASSESSMENT: 1. Recurrent nephrolithiasis, unknown nature of the stone, probably calcium oxalate. 2. Previous interventions including laser lithotripsy. The last one was in December of this year. 3. Distal ureter stone, left side, with persistent pain with signs of obstruction and MSSA colonization of urine, possible upper tract involvement. DISCUSSION: The patient will need stone extraction. She has a stent in place now and we will treat with cefazolin to complete treatment and then intervention with the lithotripsy again subsequently in the near future. Could start with Rocephin and then transition to Keflex once there is improvement in inflammatory process, total duration to depend on the timing of surgical intervention completion. Job ID: [id number] MTDD
[2019-04-28] MEDS: Sodium Chloride 0.9% 1,000 ML IV SCH ×3 (04:18→14:27)
--- NOTE | 2019-04-28 08:10 | PRG ---
DATE OF SERVICE: 04/28/2019 SUBJECTIVE: The patient is feeling okay, pain improved. Denies chills or fever. Last pain medication provided yesterday. Abdomen is soft, nontender, nondistended. No CVA tenderness. LABORATORY DATA: White count yesterday is normalized to 8. Renal function stable at 0.76 creatinine. Blood cultures negative. Urine culture demonstrating Staph aureus. Appreciate Infectious Disease consult. IMPRESSION AND PLAN: Ms. Elizalde is a 38-year-old female with recurrent kidney stones, status post left ureteral stent on April 25. Admitted due to Staph aureus urinary tract infection. Appreciate Dr. Burciaga' consult. Per Infectious Disease, recommend IV Rocephin for 2 weeks, then transitioned to Keflex p.o. The patient will require a PICC line. IV antibiotic regimen per Infectious Disease. From urologic perspective, the patient can be discharged home once IV antibiotic regimen has been finalized. Has appointment with me on Wednesday, 05/01. If recheck UA C and S negative, I will proceed with ureteroscopy, laser lithotripsy, subsequent week on IV Rocephin. patient informed. Job ID: [id number] MTDD
[2019-04-28] MEDS: Famotidine/PF 20 mg/2ml Vial SLOW IVP SCH ×2 (08:31→21:17)
[2019-04-28] MEDS: Ketorolac Tromethamine 30 MG/ML VIAL IVP PRN (10:08)
[2019-04-28] MEDS: Senokot S 8.6-50 MG TAB PO PRN ×2 (11:06→21:26)
--- NOTE | 2019-04-28 12:04 | PDOC.HOSPP ---
- Subjective Encounter Date: 04/28/19 Encounter Time: 10:30 Subjective: pt up in bed feels well - Objective Vital Signs & Weight: Vital Signs (12 hours) Temp Pulse Resp BP Pulse Ox 04/28/19 08:30 96 04/28/19 07:43 98.3 F 99 16 104/69 96 Weight Weight 204 lb Result Diagrams: 04/27/19 05:10 04/27/19 05:10 Hospitalist ROS - Review of Systems Respiratory: denies: cough, dry, shortness of breath, hemoptysis, SOB with excertion, pleuritic pain, sputum, wheezing, other Cardiovascular: denies: chest pain, palpitations, orthopnea, paroxysmal noc. dyspnea, edema, light headedness, other Gastrointestinal: denies: nausea, vomiting, abdominal pain, diarrhea, constipation, melena, hematochezia, other - Medication Medications: Active Medications Generic Name Dose Route Start Last Admin Trade Name Freq PRN Reason Stop Dose Admin Famotidine 20 mg 04/27/19 09:00 04/28/19 08:31 Pepcid SLOW IVP 20 mg Q12HR AHMET Administration Sodium Chloride 1,000 mls @ 100 mls/hr 04/26/19 22:30 04/28/19 11:10 Normal Saline 0.9% IV Not Given .Q10H AHMET Ceftriaxone Sodium 2 gm/ 100 mls @ 200 mls/hr 04/27/19 14:00 04/27/19 14:42 Sodium Chloride IVPB 100 mls Q24HR AHMET Administration Ketorolac Tromethamine 15 mg 04/26/19 22:26 04/28/19 10:08 Toradol IVP 05/01/19 22:27 15 mg Q6H PRN Administration Pain Senna/Docusate Sodium 2 tab 04/26/19 22:17 04/28/19 11:06 Senokot S PO 2 tab BID PRN Administration Constipation - Exam Neck: negative: supple, symmetric, no JVD, no thyromegaly, no lymphadenopathy, no carotid bruit, JVD Heart: negative: RRR, no murmur, no gallops, no rubs, normal peripheral pulses, irregular, diminshed peripheral pulses, murmur present, II/IV, III/IV Respiratory: negative: CTAB, no wheezes, no rales, no ronchi, normal chest expansion, no tachypnea, normal percussion, rales, rhonchi, tachypneic, wheezes Hosp A/P (1) UTI (urinary tract infection) Status: Acute (2) Hydronephrosis, right Code(s): N13.30 - UNSPECIFIED HYDRONEPHROSIS Status: Acute - Plan pt's urine indicates mssa will continue vanco and get ID consult since pt has a stent placed in her left ureter. 04/28 pt up in bed no complains. will order picc for iv abx for 2 weeks. will notify window caser.
[2019-04-28] MEDS: cefTRIAXone\\ROCEPHIN 2 GM in Sodium Chloride 0.9% 100 ML IVPB SCH (14:27)
[2019-04-29] MEDS: Sodium Chloride 0.9% 1,000 ML IV SCH (00:10)
[2019-04-29] MEDS ORDERED: Cepastat Lozenges 1 LOZ PO PRN (09:20)
[2019-04-29] MEDS ORDERED: HYDROcodone/Acetaminophen 5/325 mg Tablet PO PRN (09:20)
[2019-04-29] MEDS ORDERED: Calcium Carbonate 500 MG ChewTAB PO PRN (09:20)
[2019-04-29] MEDS ORDERED: Zolpidem Tartrate 5 MG TAB PO PRN (09:20)
[2019-04-29] MEDS ORDERED: Loperamide HCl 2 MG CAP PO PRN (09:20)
[2019-04-29] MEDS ORDERED: Loratadine 10 MG TAB PO PRN (09:20)
[2019-04-29] MEDS ORDERED: Sodium Chloride 0.65% Nasal 44 ML BOT EA NARE PRN (09:20)
[2019-04-29] MEDS ORDERED: Acetaminophen 500 MG TAB PO PRN (09:20)
[2019-04-29] MEDS ORDERED: Diabetic Tussin 200 MG/10 ML UDCUP PO PRN (09:20)
[2019-04-29] MEDS ORDERED: Artificial Tears 18 DROP/0.9 ML EA EYE PRN (09:20)
[2019-04-29] MEDS ORDERED: hydrALAZINE 20 MG/ML VIAL SLOW IVP PRN (09:20)
[2019-04-29] MEDS: Famotidine/PF 20 mg/2ml Vial SLOW IVP SCH ×2 (09:35→20:47)
--- NOTE | 2019-04-29 11:04 | PDOC.HOSPP ---
- Subjective Encounter Date: 04/29/19 Encounter Time: 08:40 Subjective: Patient seen and examined. No new complaints. No overnight events - Objective Vital Signs & Weight: Vital Signs (12 hours) Temp Pulse Resp BP Pulse Ox 04/29/19 08:00 97.9 F 96 18 121/82 97 Weight Weight 204 lb I&O: 04/28/19 04/29/19 04/30/19 06:59 06:59 06:59 Intake Total 3388 Balance 3388 Result Diagrams: 04/27/19 05:10 04/27/19 05:10 Hospitalist ROS - Review of Systems Constitutional: denies: fever, chills, sweats, weakness, malaise, other ENT: denies: ear pain, ear discharge, nose pain, nose discharge, nose congestion , mouth pain, mouth swelling, throat pain, throat swelling, other Respiratory: denies: cough, dry, shortness of breath, hemoptysis, SOB with excertion, pleuritic pain, sputum, wheezing, other Cardiovascular: denies: chest pain, palpitations, orthopnea, paroxysmal noc. dyspnea, edema, light headedness, other Gastrointestinal: denies: nausea, vomiting, abdominal pain, diarrhea, constipation, melena, hematochezia, other Genitourinary: denies: dysuria, frequency, incontinence, hematuria, retention, other Musculoskeletal: denies: neck pain, shoulder pain, arm pain, back pain, hand pain, leg pain, foot pain, other Skin: denies: rash, lesions, jennifer, bruising, other - Medication Medications: Active Medications Generic Name Dose Route Start Last Admin Trade Name Freq PRN Reason Stop Dose Admin Famotidine 20 mg 04/27/19 09:00 04/29/19 09:35 Pepcid SLOW IVP 20 mg Q12HR AHMET Administration Ceftriaxone Sodium 2 gm/ 100 mls @ 200 mls/hr 04/27/19 14:00 04/28/19 14:27 Sodium Chloride IVPB 100 mls Q24HR AHMET Administration Ketorolac Tromethamine 15 mg 04/26/19 22:26 04/28/19 10:08 Toradol IVP 05/01/19 22:27 15 mg Q6H PRN Administration Pain Senna/Docusate Sodium 2 tab 04/26/19 22:17 04/28/19 21:26 Senokot S PO 2 tab BID PRN Administration Constipation - Exam General Appearance: NAD, awake alert Eye: PERRL, anicteric sclera ENT: normocephalic atraumatic, no oropharyngeal lesions Neck: supple, symmetric, no JVD, no thyromegaly Heart: RRR, no murmur, no gallops, no rubs, normal peripheral pulses Respiratory: CTAB, no wheezes, no rales, no ronchi Gastrointestinal: soft, non-tender, non-distended, normal bowel sounds Extremities: no cyanosis, no clubbing, no edema Skin: normal turgor, no lesions, no rashes Neurological: no focal deficits Musculoskeletal: normal tone, normal strength Psychiatric: normal affect, normal behavior Hosp A/P (1) UTI (urinary tract infection) Status: Acute (2) Obesity (BMI 30.0-34.9) Code(s): E66.9 - OBESITY, UNSPECIFIED Status: Chronic (3) S/P ureteral stent placement Code(s): Z96.0 - PRESENCE OF UROGENITAL IMPLANTS Status: Acute Plan: left side (4) Left nephrolithiasis Code(s): N20.0 - CALCULUS OF KIDNEY Status: Chronic - Plan old records reviewed/req, plan discussed w/ family, continue antibiotics 04/29/19- continue rocephin as per ID, today PICC line, outpt IV antibiotic, will consider discharge tomorrow after IV antibiotic
--- NOTE | 2019-04-29 11:18 | SPC ---
Ultrasound and Fluoroscopic guided left upper extremity PICC placement HISTORY: Pyelonephritis. Patient needs long-term IV antibiotics. FINDINGS: Informed consent obtained prior to the procedure. An appropriate access site was determined with ultrasound guidance. The area was then meticulously pr epped and draped in usual sterile fashion. Skin overlying the left basilic vein anesthetized with 1% buffered lidocaine. Utilizing direct sonogr aphic guidance, vascular access is obtained via the left basilic vein, and an 0.018in guidewire was advanced to the cavoatrial junction. Intravascular length is calculated at 40 cm, and the PICC is cut accordingly. Needle is removed and replaced with a peel-away sheath. The PICC was advanced over the wire. Wire and peel-away sheath were removed. The tip of the catheter overlies the cavoatrial junction. The catheter was accessed and aspirated/flushed easily. Exposure data: 0 minutes of fluoroscopic time 46 mGy centimeter squared FINDINGS: Technically successful placement of a 40 centimeter single lumen 5 Thai left upper extremity PICC l ine. IMPRESSION: Successful ultrasound guided placement of a left upper extremity PICC.
--- NOTE | 2019-04-29 13:01 | PRG ---
DATE OF SERVICE: 04/29/2019 SUBJECTIVE: The patient without complaints, doing well. Pain is adequately controlled, minimal. OBJECTIVE: VITAL SIGNS: She is afebrile. ABDOMEN: Soft, nontender, and nondistended. No CVA tenderness. LABORATORY DATA: No new labs as her white count normalized on April 27 to 8.4. Renal function stable at 0.76. Cultures: On April 27, urine culture final is negative. On April 26, blood cultures negative. On April 25, urine culture with Staph aureus. PICC line obtained today. IMPRESSION AND PLAN: Ms. Elizalde is a 38-year-old female with history of recurrent kidney stone, status post left ureteral stent on April 25 due to intractable pain, due to urolithiasis, currently admitted due to Staphylococcus urinary tract infection. Per Dr. Burciaga, IV Rocephin for 2 weeks, then transitioned to Keflex p.o. Her repeat urine culture is negative. She has received a PICC line, however, need to be in-house until tomorrow for infusion. She does have a close followup with me on Wednesday, May 01. Upon followup, we will schedule elective ureteroscopy and laser lithotripsy the following week, on Rocephin IV. The patient informed. Anticipate discharge after infusion of Rocephin tomorrow. Job ID: [id number] [facility]
[2019-04-29] MEDS: cefTRIAXone\\ROCEPHIN 2 GM in Sodium Chloride 0.9% 100 ML IVPB SCH (14:12)
[2019-04-30] MEDS: Famotidine/PF 20 mg/2ml Vial SLOW IVP SCH ×2 (09:18→19:27)
--- NOTE | 2019-04-30 10:09 | PDOC.HOSPP ---
- Subjective Encounter Date: 04/30/19 Encounter Time: :20 Subjective: Patient seen and examined. No new complaints. No overnight events - Objective Vital Signs & Weight: Vital Signs (12 hours) Temp Pulse Resp BP Pulse Ox 04/30/19 08:00 98.0 F 93 18 125/85 100 Weight Weight 204 lb I&O: 04/29/19 04/30/19 05/01/19 06:59 06:59 06:59 Intake Total 3388 2570 Balance 3388 2570 Result Diagrams: 04/27/19 05:10 04/27/19 05:10 Hospitalist ROS - Review of Systems ENT: denies: ear pain, ear discharge, nose pain, nose discharge, nose congestion , mouth pain, mouth swelling, throat pain, throat swelling, other Respiratory: denies: cough, dry, shortness of breath, hemoptysis, SOB with excertion, pleuritic pain, sputum, wheezing, other Cardiovascular: denies: chest pain, palpitations, orthopnea, paroxysmal noc. dyspnea, edema, light headedness, other Gastrointestinal: denies: nausea, vomiting, abdominal pain, diarrhea, constipation, melena, hematochezia, other Genitourinary: denies: dysuria, frequency, incontinence, hematuria, retention, other Musculoskeletal: denies: neck pain, shoulder pain, arm pain, back pain, hand pain, leg pain, foot pain, other Skin: denies: rash, lesions, jennifer, bruising, other - Medication Medications: Active Medications Generic Name Dose Route Start Last Admin Trade Name Freq PRN Reason Stop Dose Admin Acetaminophen 650 mg 04/26/19 22:17 04/29/19 20:47 Tylenol PO 650 mg Q4H PRN Administration Headache/Fever/Mild Pain (1-3) Famotidine 20 mg 04/27/19 09:00 04/30/19 09:18 Pepcid SLOW IVP 20 mg Q12HR AHMET Administration Ceftriaxone Sodium 2 gm/ 100 mls @ 200 mls/hr 04/27/19 14:00 04/29/19 14:12 Sodium Chloride IVPB 100 mls Q24HR AHMET Administration Ketorolac Tromethamine 15 mg 04/26/19 22:26 04/28/19 10:08 Toradol IVP 05/01/19 22:27 15 mg Q6H PRN Administration Pain Senna/Docusate Sodium 2 tab 04/26/19 22:17 04/28/19 21:26 Senokot S PO 2 tab BID PRN Administration Constipation - Exam General Appearance: NAD, awake alert Eye: PERRL, anicteric sclera ENT: normocephalic atraumatic, no oropharyngeal lesions Neck: supple, symmetric, no JVD, no thyromegaly Heart: RRR, no murmur, no gallops, no rubs Respiratory: CTAB, no wheezes, no rales Gastrointestinal: soft, non-tender, non-distended, normal bowel sounds Extremities: no cyanosis, no clubbing, no edema Skin: normal turgor, no lesions, no rashes Neurological: cranial nerve grossly intact, normal sensation to touch, no weakness, no focal deficits Musculoskeletal: normal tone, normal strength Psychiatric: normal affect, normal behavior Hosp A/P (1) UTI (urinary tract infection) Status: Acute (2) Obesity (BMI 30.0-34.9) Code(s): E66.9 - OBESITY, UNSPECIFIED Status: Chronic (3) S/P ureteral stent placement Code(s): Z96.0 - PRESENCE OF UROGENITAL IMPLANTS Status: Acute (4) Left nephrolithiasis Code(s): N20.0 - CALCULUS OF KIDNEY Status: Chronic - Plan old records reviewed/req, continue antibiotics 04/29/19- continue rocephin as per ID, today PICC line, outpt IV antibiotic, will consider discharge tomorrow after IV antibiotic 04/30- after rocephin discharge with outpt iv antibiotics
--- NOTE | 2019-04-30 10:53 | DIS ---
DATE OF ADMISSION: 04/26/2019 DATE OF DISCHARGE: 04/30/2019 DISCHARGE DISPOSITION: Home with outpatient IV antibiotic therapy. PRIMARY DISCHARGE DIAGNOSIS: Urinary tract infection with methicillin-susceptible Staphylococcus aureus. SECONDARY DISCHARGE DIAGNOSES: History of left nephrolithiasis, history of left ureteral stent placement, obesity with BMI of 32, attention deficit hyperactivity disorder. PRIMARY PROCEDURE/OPERATION: PICC line placement on April 29, 2019. RADIOLOGICAL INVESTIGATION: Abdomen x-ray showed left nephrolithiasis and proper position of stent. SIGNIFICANT LABORATORY DATA: WBC 8.4, hemoglobin 11.4, platelet 204. Sodium 139, creatinine 0.76. LFT, normal. Urinalysis suggestive of UTI. Urine culture grew MSSA. DISCHARGE MEDICATION: Rocephin 2 g IV daily for total 2 weeks duration. She will finish on May 10. Dextromethorphan/amphetamine tablet daily. CONTRAINDICATION: None. CODE STATUS: Full code. INPATIENT RING FACER: Dr. Sweeney was following while in hospital. Dr. Burciaga was consulted while in hospital. TEST RESULTS PENDING ON DISCHARGE: None. ALLERGIES: NO KNOWN DRUG ALLERGIES. DISCHARGE PLAN: Post hospital, the patient will follow up with Dr. Sweeney on May 01, 2019 at 10 a.m. The patient will have outpatient IV antibiotic therapy till May 10. HOSPITAL COURSE: A 38-year-old female who was admitted by Lorraine Kim. Please see her H and P for further details. The patient has recent history of ureteral stent placement and she was complaining of left lower quadrant pain. The patient had urinalysis, which was suggestive of UTI. The patient was admitted to medical floor. Her urine culture grew MSSA. Dr. Burciaga was consulted during this admission and he recommended IV antibiotic therapy for total [address] Sweeney/Urology was also following while in hospital and she agreed with IV antibiotic therapy and she reported that once the culture is negative, then she will consider outpatient treatment for left nephrolithiasis. PICC line was placed during this admission. She will have outpatient IV antibiotic therapy through [facility]. The patient is doing very well and she is stable for discharge. Please see my progress note from today for further detail. Job ID: [id number]
[2019-04-30] MEDS: cefTRIAXone\\ROCEPHIN 2 GM in Sodium Chloride 0.9% 100 ML IVPB SCH (14:09)
--- NOTE | 2019-05-01 07:24 | PRG ---
DATE OF SERVICE: 05/01/2019 SUBJECTIVE: The patient without complaints. OBJECTIVE: VITAL SIGNS: Stable. She is afebrile. ABDOMEN: Soft, nontender, nondistended. LABORATORY DATA: Repeat culture negative. IMPRESSION AND PLAN: Ms. Elizalde is a 38-year-old female with history of left ureteral stent, left ureteral renal calculi status post stent with Staphylococcus aureus urinary tract infection. Blood culture negative. The patient is still in-house as there are insurance issues for outpatient [facility]. Anticipate discharge today. We will reschedule her followup from today to this at 8 a.m. to preop. Anticipate ureteroscopy laser lithotripsy sometime next week. Discharge per Primary Service. Job ID: [id number]
[2019-05-01] MEDS: Famotidine/PF 20 mg/2ml Vial SLOW IVP SCH (08:16)
[2019-05-01] MEDS: cefTRIAXone\\ROCEPHIN 2 GM in Sodium Chloride 0.9% 100 ML IVPB SCH (13:21)
[2019-05-01 14:35] VITALS: BP 108/72; TEMP 98.2
== END 2019-05-01 14:38 | disposition home or self-care (01) | DRG 690 ==
LOC: SCSER 17:29 → T4-B 18:52
PROVIDERS: ADMIT Hospitalist; ATTEND Hospitalist
PROC: 02HV33Z Insertion of Infusion Device into Superior Vena Cava, Percutaneous Approach (ICD-10-PCS; principal; 2019-04-29)
PROC: B518YZA Fluoroscopy of Superior Vena Cava using Other Contrast, Guidance (ICD-10-PCS; 2019-04-29)
PROC: B548ZZA Ultrasonography of Superior Vena Cava, Guidance (ICD-10-PCS; 2019-04-29)
DX: N13.6 Pyonephrosis (principal); F90.9 Attention-deficit hyperactivity disorder, unspecified type; F41.0 Panic disorder [episodic paroxysmal anxiety]; F17.210 Nicotine dependence, cigarettes, uncomplicated; B95.61 Methicillin susceptible Staphylococcus aureus infection as the cause of diseases classified elsewhere; E66.9 Obesity, unspecified; Z96.0 Presence of urogenital implants; Z98.51 Tubal ligation status; Z68.32 Body mass index [BMI] 32.0-32.9, adult
CPT/HCPCS: 36415; 36569; 71046; 74018; 74176; 74420; 76000; 80048; 80053; 81001; 81003; 81015; 81025; 83605; 83690; 85025; 85610; 85730; 87040; 87077; 87086; 87186; 96361; 96365; 96366; 96375; C1751; C1758; C1769; J0696; J1100; J1644; J1885; J1956; J2001; J2270; J2405; J2704; J3010; J3370; J3490; J7050; S0028

== ENCOUNTER 2019-05-04 09:41 | Outpatient (CLI) | payer BC ==
[2019-05-04 12:13] LABS: Hemoglobin 14.5 g/dL (12.0-16.0); Mean Corpuscular HGB CONC 33.7 g/dL (32.0-36.0); Mean Corpuscular Volume 88.9 fL (78.0-98.0); Platelet Count 221 thou/uL (130-400); RBC Distribution Width 11.9 % (11.5-14.5); Red Blood Cell (RBC) Count 4.83 mill/uL (4.20-5.40); White Blood Cell (WBC) Count 8.9 thou/uL (4.8-10.8)
[2019-05-04 12:15] LABS: INR-International Normal Ratio 1.1; PTT 33.4 SEC (22.9-36.1); Prothrombin Time 14.3 SEC (12.0-14.7)
[2019-05-04 12:28] LABS: BHCG - Serum Negative (NEGATIVE); Pregs Control Background? CLEAR/WHITE (CLR/WHITE); Pregs Control Bar Appear? YES (CONTROL BAR)
[2019-05-04 12:30] LABS: Anion Gap 11 mmol/L (10-20); BUN (Urea Nitrogen) 12 mg/dL (7.0-18.7); Calc. Creatinine Clearance 0 mL/min (70-130); Calcium 9.3 mg/dL (7.8-10.44); Carbon Dioxide 26 mmol/L (22-29); Chloride 104 mmol/L (98-107); Estimated GFR-MDRD 61; Glucose 110 mg/dL (70-105); Potassium 3.8 mmol/L (3.5-5.1); Sodium 137 mmol/L (136-145)
--- NOTE | 2019-05-04 13:18 | RAD ---
PA AND LATERAL CHEST: HISTORY: Preop. COMPARISON: 04/25/2019 study. FINDINGS: Left-sided PICC line is seen, catheter tip overlying the superior vena cava. Heart size and mediasti num are within normal limits. The lungs are clear of infiltrates. IMPRESSION: No active intrathoracic disease. POS: [facility]
== END 2019-05-04 09:42 | disposition home or self-care (01) ==
LOC: LABBT 09:41
PROVIDERS: ATTEND Urology
DX: Z01.812 Encounter for preprocedural laboratory examination (principal); N20.2 Calculus of kidney with calculus of ureter
CPT/HCPCS: 71046; 80048; 84703; 85027; 85610; 85730

== ENCOUNTER 2019-05-08 03:19 | Emergency (ER) | payer BC | END 2019-05-08 03:51 | disposition home or self-care (01) | LOC: ERS 03:19 | DX: Z48.812 Encounter for surgical aftercare following surgery on the circulatory system (principal); F17.210 Nicotine dependence, cigarettes, uncomplicated | CPT/HCPCS: 99283 ==

== ENCOUNTER 2019-05-08 07:00 | Day surgery (SDC) | payer BC ==
[2019-05-04 11:43] VITALS: BMI 31.9
[2019-05-08] MEDS ORDERED: cefTRIAXone\\ROCEPHIN 2 GM VIAL ONE (07:45)
[2019-05-08] MEDS ORDERED: Sodium Chloride 0.9% 100 ML ONE (07:46)
--- NOTE | 2019-05-08 07:57 | RAD ---
XR Abdomen 1 View/KUB CLINICAL HISTORY: Ureteral calculi, kidney stone. COMPARISON: 04/26/2019. FINDINGS: Left ureteral stent remains. Calcifications are seen overlying the distal aspect of the stent, measur ing approximately 4 mm, at level of inferior left SI joint, and 5 mm within the distal left pelvis. This may relate to a stable phlebolith although is partially obscured by the stent.. Punctate calcifi cation overlying the left renal shadow is redemonstrated. IMPRESSION: 1. Left ureteral stent remains in place. 2. Calcification overlying left renal shadow is redemonstrated. 3. Calcifications overlying the distal left ureteral stent, as above. 4. As necessary, follow-up with IVP may be performed. Transcribed Date/Time: 05/08/2019 8:31 AM
[2019-05-08] MEDS ORDERED: Iothalamate Meglumine 60% 50 ML VIAL FS ONE (09:05)
[2019-05-08] MEDS ORDERED: Fentanyl 100 MCG/2 ML VIAL ONE (12:45)
--- NOTE | 2019-05-08 13:45 | RAD ---
XR IVP Retrograde HISTORY: Stent placement COMPARISON: None. FINDINGS: Total of 3 images are presented for interpretation these show placement of a left ureteral stent which appears be in good position. IMPRESSION: Left ureteral stent placement.
[2019-05-08] MEDS ORDERED: Dexamethasone 20 MG/5 ML VIAL ONE (13:57)
[2019-05-08] MEDS ORDERED: Rocuronium Bromide 10 MG/ML (10ML VIAL) ONE (13:57)
[2019-05-08] MEDS ORDERED: Ondansetron PF 4 MG/2 ML Vial ONE (13:57)
[2019-05-08] MEDS ORDERED: Lidocaine 1% PF 5 ML VIAL ONE (13:57)
[2019-05-08] MEDS ORDERED: Glycopyrrolate 0.2 MG/ML 5 ML SYRINGE ONE (13:57)
[2019-05-08] MEDS ORDERED: PROPOFOL 200 MG/20 ML VIAL ONE (13:57)
[2019-05-08] MEDS ORDERED: PHENYLEPHRINE-NS 100 MCG/ML 10 ML SYRINGE ONE (13:57)
[2019-05-08] MEDS ORDERED: Phenazopyridine HCl 97.5 MG TABLET ONE (14:04)
[2019-05-08] MEDS ORDERED: Oxybutynin 5 MG TAB ONE (14:04)
--- NOTE | 2019-05-08 19:44 | OP ---
DATE OF PROCEDURE: 05/08/2019 PREOPERATIVE DIAGNOSES: 1. A 38-year-old female with history of recurrent kidney stone, left distal ureteral calculi at the level of a 2 or 3 ureter measuring 8 mm. Hounsfield units 750. 2. Bilateral punctate renal lithiasis, left mid pole 3 mm stone, right punctate x2. POSTOPERATIVE DIAGNOSES: 1. A 38-year-old female with history of recurrent kidney stone, left distal ureteral calculi at the level of a 2 or 3 ureter measuring 8 mm. Hounsfield units 750. 2. Bilateral punctate renal lithiasis, left mid pole 3 mm stone, right punctate x2. PROCEDURES PERFORMED: Cystoscopy, left retrograde pyelogram, 6 x 26 double-J ureteral stent exchange on Dangler, rigid ureteroscopy, laser lithotripsy, basket extraction of stone fragments, flexible ureteroscopy, pyeloscopy diagnostic, and retrograde pyelogram. ANESTHESIA: General. COMPLICATIONS: None apparent. DISPOSITION: To recovery room in stable condition. DESCRIPTION OF PROCEDURE: The patient was taken to the operating room, placed in a dorsal lithotomy position with the genital area prepped and draped in the usual surgical sterile fashion. Her repeat urine culture is negative and she has been on IV Rocephin per Infectious Disease. The previous existing ureteral stent was removed to the level of the meatus and this was extracted uneventfully. A 0.35 Sensor wire was passed through the stent to the left upper pole. A rigid ureteroscopy was performed, which the stone was easily visualized as she was passively dilated. Using 365 laser fiber at 1.0 joules, we laser lithotripsied the stone into multiple fragments and basket extracted all stone debris. This was performed atraumatically. We then subsequently passed a 10-[place] dual-lumen access sheath and a second safety wire Super Stiff was passed into the left upper pole. Flexible ureteroscope was then advanced over the wire into the left collecting system. We surveyed the collecting system, which did not demonstrate any migrated stone debris. There were multiple Joo plaques consistent with recurrent stone former. This 3 mm stone seen on CT is not visualized within the collecting system likely to cause by Joo plaque at this time. The ureter was surveyed, which demonstrated no further stone nidus of concern or ureteral mucosa trauma. A 6 x 26 double-J ureteral stent was replaced over the working wire. All working wire and safety wire was subsequently removed and stent was left on Dangler as there was endoscopic clearance. Bladder was completely emptied and then, the stent Dangler was taped to the patient's pubic symphysis with a Tegaderm. She will follow up with me next May 09 for stent on . She is advised to continue IV Rocephin at least until May 10, 24 hours after her stent is removed. She is discharged with tramadol refill #30, oxybutynin p.r.n., Colace, and Azo p.r.n. Job ID: [id number] [facility]
== END 2019-05-08 15:55 | disposition home or self-care (01) ==
LOC: SDC 07:00
PROVIDERS: ATTEND Urology
PROC: 0TF48ZZ Fragmentation in Left Kidney Pelvis, Via Natural or Artificial Opening Endoscopic (ICD-10-PCS; principal; 2019-05-08)
PROC: 0T778DZ Dilation of Left Ureter with Intraluminal Device, Via Natural or Artificial Opening Endoscopic (ICD-10-PCS; principal; 2019-05-08)
PROC: 0TF78ZZ Fragmentation in Left Ureter, Via Natural or Artificial Opening Endoscopic (ICD-10-PCS; principal; 2019-05-08)
DX: N20.2 Calculus of kidney with calculus of ureter (principal); N76.0 Acute vaginitis; F90.9 Attention-deficit hyperactivity disorder, unspecified type; F41.9 Anxiety disorder, unspecified; F41.0 Panic disorder [episodic paroxysmal anxiety]; F17.210 Nicotine dependence, cigarettes, uncomplicated; Z79.899 Other long term (current) drug therapy
CPT/HCPCS: 74018; 74420; 99283; C1758; C1769; J0696; J1100; J2001; J2405; J2704; J3010; J3490

== ENCOUNTER 2019-08-21 13:18 | Outpatient (CLI) | payer BC ==
--- NOTE | 2019-08-21 13:46 | RAD ---
KUB: 08/21/2019 COMPARISON: 05/08/2019 HISTORY: Renal stone disease FINDINGS: The previously noted left double-J ureteral stent has been removed. There is a 2-3 mm calci fication overlying the 12th rib on the left which may represent a small left renal stone. No calcification overlies the right renal shadow. The bowel gas pattern is nonobstructed. Nonspecific pe lvic calcifications are noted bilaterally which could be on the basis of vascular calcifications or less likely, ureteral stones. IMPRESSION: Calcifications within the pelvis and the left upper quadrant as detailed above. Findings are most likely on the basis of a subcentimeter left renal calculus and vascular calcifications within the pelvis.
--- NOTE | 2019-08-21 13:49 | ULT ---
Exam: Bilateral renal ultrasound HISTORY: Renal calculi COMPARISON: None FINDINGS: Right kidney: Normal cortical echotexture. No hydronephrosis. Right kidney measurements: 10.4 x 5.0 x 5.7 cm. Left kidney: Normal cortical echotexture. No hydronephrosis Left kidney measurements 11.4 x 4.8 x 4.9 cm. Urinary bladder: Normal mucosa. IMPRESSION: No hydronephrosis.
== END 2019-08-21 13:19 | disposition home or self-care (01) ==
LOC: BICULT 13:18
PROVIDERS: ATTEND Urology
DX: N20.0 Calculus of kidney (principal); N28.89 Other specified disorders of kidney and ureter
CPT/HCPCS: 74018; 76770

== ENCOUNTER 2020-04-12 07:54 | Outpatient (CLI) | payer BC ==
--- NOTE | 2020-04-12 13:04 | NM ---
Radionucleotide parathyroid scan with SPECT CT. HISTORY: Hyperparathyroidism. FINDINGS: Delayed images at 3 hours obtained. Physiologic uptake of radiotracer within the salivary g lands. Appropriate washout of the thyroid gland. No residual foci of abnormal uptake at the thyroid bed or upper mediastinum. IMPRESSION : No scintigraphic evidence of parathyroid adenoma.
== END 2020-04-12 07:55 | disposition home or self-care (01) ==
LOC: NM 07:54
PROVIDERS: ATTEND Specialist
DX: E21.3 Hyperparathyroidism, unspecified (principal); N20.0 Calculus of kidney
CPT/HCPCS: 78072; A9500

== ENCOUNTER 2020-07-09 14:17 | Outpatient (CLI) | payer BC ==
--- NOTE | 2020-07-09 14:45 | RAD ---
Exam:3 views left ankle HISTORY: Acute left ankle pain. COMPARISON: None FINDINGS: No significant soft tissue swelling. Ankle mortise is intact. Joint spaces are preserved. N o fracture. IMPRESSION: No fracture.
--- NOTE | 2020-07-09 15:01 | RAD ---
LEFT FOOT 3 VIEWS: HISTORY: Foot pain. FINDINGS: Tarsals, metatarsals, and phalanges unremarkable. No fracture or acute abnormality. IMPRESSION: No acute findings. POS: [facility]
== END 2020-07-09 14:18 | disposition home or self-care (01) ==
LOC: BICRAD 14:17
PROVIDERS: ATTEND Physician Assistant
DX: M25.572 Pain in left ankle and joints of left foot (principal); M79.672 Pain in left foot

== ENCOUNTER 2022-01-14 12:46 | Outpatient (CLI) | payer BC | END 2022-01-14 12:47 | disposition home or self-care (01) | LOC: BICULT 12:46 | PROVIDERS: ATTEND Urology | DX: N20.0 Calculus of kidney (principal); R79.89 Other specified abnormal findings of blood chemistry; R93.5 Abnormal findings on diagnostic imaging of other abdominal regions, including retroperitoneum; Z00.00 Encounter for general adult medical examination without abnormal findings | CPT/HCPCS: 36415; 74018; 76770; 80048; 80061; 81001; 83036; 84443; 85025 ==

== ENCOUNTER 2022-01-14 13:22 | Outpatient (CLI) | payer BC | END 2022-01-14 13:23 | disposition home or self-care (01) | LOC: BICMAMMO 13:22 | PROVIDERS: ATTEND Family Medicine | DX: Z12.31 Encounter for screening mammogram for malignant neoplasm of breast (principal) | CPT/HCPCS: 77063; 77067 ==

== ENCOUNTER 2022-01-19 14:02 | Outpatient (CLI) | payer BC ==
[~2022-01-19 14:02] MED LIST changes: -Heparin 1,000 UNITS/ML VIAL ONE; +Iopamidol 370 76% 100 ML VIAL ONE
== END 2022-01-19 14:03 | disposition home or self-care (01) ==
LOC: BICCT 14:02
PROVIDERS: ATTEND Urology
DX: N20.0 Calculus of kidney (principal); R79.89 Other specified abnormal findings of blood chemistry
CPT/HCPCS: 70492; Q9967

== ENCOUNTER 2023-01-27 08:53 | Outpatient (CLI) | payer BC | END 2023-01-27 08:54 | disposition home or self-care (01) | LOC: BICRAD 08:53 | PROVIDERS: ATTEND Urology | DX: N20.0 Calculus of kidney (principal) | CPT/HCPCS: 74018 ==

== ENCOUNTER 2023-07-23 08:01 | Emergency (ER) | payer BC ==
[2023-07-23] MEDS ORDERED: Ibuprofen 800 MG TAB ONE (08:30)
[2023-07-23 09:47] LABS: SARS-CoV-2 NAA Rapid Test Not Detected (NotDetected)
== END 2023-07-23 10:03 | disposition home or self-care (01) ==
LOC: ERS 08:01
DX: J10.1 Influenza due to other identified influenza virus with other respiratory manifestations (principal); F17.210 Nicotine dependence, cigarettes, uncomplicated; Z20.822 Contact with and (suspected) exposure to COVID-19
CPT/HCPCS: 99283

== ENCOUNTER 2024-01-14 11:38 | Outpatient (CLI) | payer BC | END 2024-01-14 11:39 | disposition home or self-care (01) | LOC: BICRAD 11:38 | PROVIDERS: ATTEND Urology | DX: N20.0 Calculus of kidney (principal); R79.89 Other specified abnormal findings of blood chemistry | CPT/HCPCS: 74018 ==